=== PATIENT | female | born 1985 | race Caucasian/White ===

== ENCOUNTER 2017-10-11 04:28 | Emergency (ER) | payer SELFPAY ==
[~2017-10-11 04:28] MED LIST: IBUP600 PO; PERC5TAB12 PO; PREN1CAP7 PO
[2017-10-11 04:31] VITALS: BP 145/94; PULSE 85; RESP 16; TEMP 97.6; O2SAT 100
[2017-10-11 04:56] VITALS: O2SAT 99
--- NOTE | 2017-10-11 05:02 | PD ---
HPI Chief Complaint: Complaint Time Seen by Provider: 04:39 Travel History International Travel<30 days: No Contact w/Intl Traveler<30days: No Traveled to known affect area: No History of Present Illness HPI The patient is a 31 year old female who presents to the [facility] emergency department with a history of abdominal pain that she reports began at midnight. The patient reports that the pain is in the left upper quadrant of the abdomen and the left flank. The patient reports that the pain is a fiery sensation in the left flank, and heavy/pressure sensation in the left upper quadrant of the abdomen. She reports that it is constant and severe. She reports that it feels similar to when she has had kidney stones in the past. The patient also reports having history of gallstones. She denies having a primary care physician. The patient reports that the pain takes her breath away. She reports having nausea without vomiting. She denies having any diarrhea. Her last bowel movement was yesterday. She denies having any blood in her stool or black or tarry stools. She denies having any vaginal discharge. She denies having any urinary symptoms associated with this including darkening of her urine. On review of systems otherwise, she denies having any known recent fevers, cough, congestion, neck pain, chest pain, shortness of breath, or neurologic symptoms. LMP: Unknown, she reports that she is on Depo-Provera and has irregular cycles PFSH Past Medical History Narrative Medical The patient's past medical history is significant for gallstones, history of kidney stones. Cancer: No Cardiovascular Problems: No Diminished Hearing: No Genitourinary: No Hepatitis: No Hiatal Hernia: No Immune Disorder: No Kidney Stones: Yes Musculoskeletal: No Neurologic: No Psychiatric: No Reproductive: No Respiratory: No Immunizations Current: Yes ?: Not : 4 Past Surgical History Narrative Surgical The patient's past surgical history is significant for dilation and curettage for missed in August 2015. Surgical History: No Previous Surgery AICD: No Body Medical Devices: NONE Joint Replacement: No Pacemaker: No Social History Alcohol Use: No Tobacco Use: No Substance Use: No Allergies-Medications (Allergen,Severity, Reaction): Coded Allergies: No Known Allergies (Unverified , 09/04/15) Reported Meds & Prescriptions Reported Meds & Active Scripts Active Percocet 5-325 mg (Oxycodone/Acetaminophen) Oxycodone 5/325 Acetaminophen Tab 1 Tab PO Q4H PRN Motrin 600 Mg Tab (Ibuprofen) 600 Mg Tab 600 Mg PO Q6H PRN Citranatal [place] 27-1-260 mg ( W/O Vit A W/ Fe Fumar) 1 Cap Cap 11 Tab PO DAILY Review of Systems Except as stated in HPI: all other systems reviewed are Neg General / Constitutional: No: Fever Eyes: No: Visual changes HENT: No: Headaches Cardiovascular: No: Chest Pain or Discomfort Respiratory: No: Shortness of Breath Gastrointestinal: Positive: Nausea, Abdominal Pain, No: Vomiting, Diarrhea, Hematochezia, Constipation, Changes in Bowel Habits, Indigestion, Loss of Appetite Genitourinary: No: Dysuria Musculoskeletal: No: Pain Skin: No Rash Neurologic: No: Weakness, Focal Abnormalities, Change in Mentation, Slurred Speech, Sensory Disturbance Psychiatric: No: Depression Endocrine: No: Polydipsia Hematologic/Lymphatic: No: Easy Bruising Physical Exam Narrative General: The patient is a well-developed well-nourished female, uncomfortable appearing on arrival, holding her left side. Head and Neck exam: Head is normocephalic atraumatic. Eyes: EOMI, pupils are equal round and reactive to light. Nose: Midline septum with pink mucous membranes Mouth: Dentition unremarkable. Moist mucus membranes. Posterior oropharynx is not erythematous. No tonsillar hypertrophy. Uvula midline. Airway patent. Neck: No palpable lymphadenopathy. No nuchal rigidity. No thyromegaly. Cardiovascular: Regular rate and rhythm without murmurs, gallops, or rubs. No pulse deficit to the extremities on simultaneous auscultation and palpation of her radial artery. Lungs: Clear to auscultation bilaterally. No wheezes, rhonchi, or rales. Abdomen: Soft, with reported tenderness on palpation of the left upper quadrant of the abdomen, no other tenderness on palpation of the other quadrants of the abdomen. No tenderness on palpation of McBurney's point. No guarding, rebound , or rigidity. Negative Bergman sign. Extremities: No clubbing, cyanosis, or edema. 2+ pulses in all 4 extremities. No calf tenderness on palpation. Back: No spinous process tenderness to palpation. The patient has left-sided CVA tenderness on palpation. Neurologic Exam: Grossly nonfocal. Skin Exam: No rash noted. Intact skin that is warm and dry. Data Data Last Documented VS Vital Signs Date Time Temp Pulse Resp B/P (MAP) Pulse Ox O2 Delivery O2 Flow Rate FiO2 10/11/17 04:56 99 Room Air 10/11/17 04:31 97.6 85 16 145/94 (111) Orders Orders Complete Blood Count With Diff (10/11/17 04:53) Comprehensive Metabolic Panel (10/11/17 04:53) C-Reactive Protein (Crp) (10/11/17 04:53) Lipase (10/11/17 04:53) Urinalysis - C+S If Indicated (10/11/17 04:53) Magnesium (Mg) (10/11/17 04:53) Iv Access Insert/Monitor (10/11/17 04:53) Ecg Monitoring (10/11/17 04:53) Oximetry (10/11/17 04:53) Ed Urine Pregnancytest Poc (10/11/17 04:53) Ct Abd/Pel W/O Iv Contrast (10/11/17 04:53) Ketorolac Inj (Toradol Inj) (10/11/17 05:30) Prochlorperazine Inj (Compazine Inj) (10/11/17 05:30) Labs Laboratory Tests Test 10/11/17 04:57 White Blood Count 11.8 TH/MM3 Red Blood Count 4.47 MIL/MM3 Hemoglobin 13.6 GM/DL Hematocrit 39.8 % Mean Corpuscular Volume 89.0 FL Mean Corpuscular Hemoglobin 30.5 PG Mean Corpuscular Hemoglobin Concent 34.2 % Red Cell Distribution Width 12.4 % Platelet Count 288 TH/MM3 Mean Platelet Volume 7.9 FL Neutrophils (%) (Auto) 57.3 % Lymphocytes (%) (Auto) 33.7 % Monocytes (%) (Auto) 6.0 % Eosinophils (%) (Auto) 2.6 % Basophils (%) (Auto) 0.4 % Neutrophils # (Auto) 6.8 TH/MM3 Lymphocytes # (Auto) 4.0 TH/MM3 Monocytes # (Auto) 0.7 TH/MM3 Eosinophils # (Auto) 0.3 TH/MM3 Basophils # (Auto) 0.1 TH/MM3 CBC Comment DIFF FINAL Differential Comment Urine Color LIGHT-YELLOW Urine Turbidity HAZY Urine pH 8.0 Urine Specific [place] 1.010 Urine Protein NEG mg/dL Urine Glucose (UA) NEG mg/dL Urine Ketones NEG mg/dL Urine Occult Blood NEG Urine Nitrite NEG Urine Bilirubin NEG Urine Urobilinogen LESS THAN 2.0 MG/DL Urine Leukocyte Esterase NEG Urine WBC 2 /hpf Urine Squamous Epithelial Cells 1 /hpf Urine Amorphous Sediment RARE Urine Bacteria RARE /hpf Urine Mucus FEW /lpf Microscopic Urinalysis Comment CULT NOT INDICATED Blood Urea Nitrogen 11 MG/DL Creatinine 0.67 MG/DL Random Glucose 100 MG/DL Total Protein 7.6 GM/DL Albumin 4.0 GM/DL Calcium Level 8.8 MG/DL Magnesium Level 2.1 MG/DL Alkaline Phosphatase 108 U/L Aspartate Amino Transf (AST/SGOT) 13 U/L Alanine Aminotransferase (ALT/SGPT) 22 U/L Total Bilirubin 0.2 MG/DL Sodium Level 142 MEQ/L Potassium Level 3.7 MEQ/L Chloride Level 105 MEQ/L Carbon Dioxide Level 26.4 MEQ/L Anion Gap 11 MEQ/L Estimat Glomerular Filtration Rate 102 ML/MIN C-Reactive Protein LESS THAN 0.29 MG/DL Lipase 219 U/L MDM Medical Decision Making Medical Screen Exam Complete: Yes Emergency Medical Condition: Yes Medical Record Reviewed: Yes Differential Diagnosis Kidney stone, versus gastritis, versus pancreatitis, versus pyelonephritis, versus musculoskeletal strain, versus renal colic Narrative Course During the course of the patient's emergency department visit, the patient's history, examination, and differential diagnosis were reviewed with the patient. The patient was placed on a school bus monitor with oximetry and frequent blood pressure monitoring. The patient had IV access obtained and blood work sent for analysis. A CT scan of the abdomen and pelvis without contrast was ordered. The patient's [id number] test is negative. The patient was initially provided normal saline 1 L IV fluid bolus, Toradol 15 mg IV, Compazine 5 mg IV. The patient's laboratory studies were reviewed and remarkable for a white count of 11.8, hemoglobin 13.6, platelets 288 with a normal differential, CMP is remarkable for an AST of 13, C-reactive protein is less than 0.29, lipase 219, urinalysis shows hazy urine rare bacteria, culture not indicated. Radiology studies were reviewed and remarkable for a CT scan of the abdomen and pelvis that shows no acute pathology. The patient was noted to have a 9.4 mm right renal stone without hydronephrosis, no ureteral stone. No evidence of pathologic adenopathy, free fluid, or bowel obstruction. The patient is noted to have an approximately 2.3 cm gallstone. The patient is noted to have an approximately 1.2 cm simple cyst in the left kidney. The patient's symptoms do not appear to be related to either her kidney stone, or gallstone as the patient's pain is in the left upper quadrant and left flank. However, given the patient's large kidney stone, the patient will be given information regarding the urologist multifocal button generator for follow-up with regarding this finding, Dr. Alvarado. The patient is also given information regarding the [facility] for follow-up with the primary care physician. The patient will be given a prescription for an anti-inflammatory pain medication and nausea medication at discharge. The patient is resting comfortably and feels better, is alert and in no distress. The patient's results and examination findings were discussed with the patient. The repeat examination is unremarkable and benign. The history, exam, diagnostic testing, and current condition do not suggest any significant pathology to warrant further testing, continued ED treatment, admission, or surgical evaluation at this point. The vital signs have been stable. The patient does not have uncontrollable pain, intractable vomiting, or other significant symptoms. The patient's condition is stable and appropriate for discharge. The patient will pursue further outpatient evaluation with a primary care physician or other designated or consulting physician as indicated in the discharge instructions. The patient is instructed to report back to the emergency department immediately for reexamination in the mean time if she develops any new or worsening signs or symptoms. The patient expressed understanding and was agreeable with this plan. Diagnosis Primary Impression: Abdominal pain Qualified Codes: R10.12 - Left upper quadrant pain Additional Impression: Left flank pain Referrals: Eddie Alvarado DO call for appointment [facility] 2 days Patient Instructions: Abdominal Pain (ED), Flank Pain (ED), General Instructions, Kidney Stones (ED) Med/Other Pt SpecificInfo: Prescription(s) given Scripts Ondansetron Odt (Zofran Odt) 4 Mg Tab 4 MG SL Q6HR Y for Nausea/Vomiting, #7 TAB 0 Refills Prov: Maureen Lam MD 5/30/18 Naproxen (EC-Naprosyn) 500 Mg Tabdr 500 MG PO BID Y for PAIN GREATER THAN 5, #10 TAB 0 Refills Prov: Maureen Lam MD 10/11/17 Disposition: 01 DISCHARGE HOME Condition: Stable Maureen Lam MD October 11, 2017 05:02
[2017-10-11 05:05] LABS: AUTOMATED NEUTROPHIL # 6.8 TH/MM3 (1.8-7.7); BASOPHIL # 0.1 TH/MM3 (0-0.2); BASOPHIL % 0.4 % (0.0-2.0); EOSINOPHIL # 0.3 TH/MM3 (0-0.4); EOSINOPHIL % 2.6 % (0.0-4.0); HEMATOCRIT 39.8 % (35.0-46.0); HEMOGLOBIN 13.6 GM/DL (11.6-15.3); LYMPH % 33.7 % (9.0-44.0); MEAN CORPUSCULAR HEMOGLOBIN 30.5 PG (27.0-34.0); MEAN CORPUSCULAR HGB CONC 34.2 % (32.0-36.0); MEAN PLATELET VOLUME 7.9 FL (7.0-11.0); MONOCYTE # 0.7 TH/MM3 (0-0.9); NEUT % 57.3 % (16.0-70.0); PLATELET COUNT 288 TH/MM3 (150-450); RED BLOOD COUNT 4.47 MIL/MM3 (4.00-5.30); RED CELL DISTRIBUTION WIDTH 12.4 % (11.6-17.2); WHITE BLOOD COUNT 11.8 TH/MM3 (4.0-11.0)
[2017-10-11 05:15] LABS: AMORPHOUS SEDIMENT, URINE RARE; BACTERIA, URINE RARE /hpf; BILIRUBIN, URINE NEG (NEG); BLOOD, URINE NEG (NEG); GLUCOSE,URINE NEG (NEG); KETONE, URINE NEG (NEG); MUCUS URINE FEW /lpf (OCC); NITRITE,URINE NEG (NEG); SQUAMOUS EPITHELIAL CELL URINE 1 /hpf (0-5); URINE COLOR LIGHT-YELLOW (YELLW/STRAW); URINE LEUKOCYTE ESTERASE NEG (NEG)
--- NOTE | 2017-10-11 05:16 | RADRPT ---
EXAM DATE: 10/11/2017 5:08 AM EDT AGE/SEX: 31 years / Female INDICATIONS: Left flank pain. CLINICAL DATA: This is the patient's initial encounter. Patient reports that signs and symptoms have been present for 1 day and indicates a pain score of 5/10. MEDICAL/SURGICAL HISTORY: Renal calculi. None. RADIATION DOSE: 6.44 CTDI (mGy) COMPARISON: No prior exams available for comparison. TECHNIQUE: Multiple contiguous axial images were obtained through the abdomen. Images were obtained using multiple row detector helical technique. Using dose reduction techniques, radiation dose was ke pt as low as reasonably achievable to obtain optimal diagnostic quality images. FINDINGS: Abdomen CT: The liver, spleen, pancreas, adrenals are unremarkable. Approximate 9.4 mm right renal stone is pres ent without hydronephrosis. There is no ureteral stone. There is no evidence for any appreciable path ological adenopathy, free fluid, or bowel obstruction. Approximate 2.3 cm gallstone is present. Appr oximate 1.2 cm simple cyst is present in the left kidney. Pelvic CT: There is no evidence for mass, abscess formation, or any significant adenopathy within the pelvis. CONCLUSION: 1. Cholelithiasis. 2. Approximate 1 cm nonobstructing right lower pole renal stone. Electronically signed by: Christina Posada MD 10/11/2017 5:15 AM EDT
[2017-10-11 05:30] LABS: ALT (GPT) 22 U/L (10-53); AST (GOT) 13 U/L (15-37); BICARBONATE 26.4 MEQ/L (21.0-32.0); BLOOD UREA NITROGEN 11 MG/DL (7-18); CALCIUM 8.8 MG/DL (8.5-10.1); CHLORIDE 105 MEQ/L (98-107); CREATININE 0.67 MG/DL (0.50-1.00); GLOMERULAR FILTRATION RATE 102 ML/MIN (>89); GLUCOSE,RANDOM 100 MG/DL (74-106); MAGNESIUM 2.1 MG/DL (1.5-2.5); SODIUM (NA) 142 MEQ/L (136-145)
[2017-10-11] MEDS ORDERED: PROCHLORPERAZINE INJ 10 MG/2 ML VIAL IV PUSH ONE (05:30)
[2017-10-11] MEDS ORDERED: KETOROLAC TROMETHAMINE 30 MG/ML (IVP) VIAL IV PUSH ONE (05:30)
[2017-10-11 05:32] LABS: ALKALINE PHOSPHATASE 108 U/L (45-117); C-REACTIVE PROTEIN LESS THAN 0.29 MG/DL (0.00-0.30); TOTAL BILIRUBIN ADULT 0.2 MG/DL (0.2-1.0); TOTAL PROTEIN 7.6 GM/DL (6.4-8.2)
[2017-10-11] MEDS ORDERED: ZOFR4TAB3 SL (06:26)
[2017-10-11] MEDS ORDERED: NAPR-810 PO (06:26)
== END 2017-10-11 06:34 | disposition home or self-care (01) ==
LOC: NEPE 04:28
DX: R10.12 Left upper quadrant pain (principal); R11.0 Nausea; N20.0 Calculus of kidney; K80.20 Calculus of gallbladder without cholecystitis without obstruction
CPT/HCPCS: 74176; 80053; 81001; 83690; 83735; 84703; 85025; 86140; 96374; 96375; 99284; J0780; J1885